=== PATIENT | female | born 2000 | race Hispanic/Latino ===

== ENCOUNTER → 2021-08-14 | Outpatient (CLI) | payer BC, MEDICAID ==
[2021-08-14 14:27] LABS: THYROID STIMULATING HORMONE 1.18 uIU/mL (0.36-3.74)
== END | disposition home or self-care (01) ==
LOC: LAB 11:05
PROVIDERS: ATTEND Obstetrics & Gynecology Obstetrics
DX: O99.282 Endocrine, nutritional and metabolic diseases complicating pregnancy, second trimester (principal); Z3A.24 24 weeks gestation of pregnancy
CPT/HCPCS: 36415; 84439; 84443

== ENCOUNTER 2021-08-27 20:10 | Observation (INO) | payer BC, MEDICAID ==
[~2021-08-27] VITALS: Ht 154.9 cm; Wt 49.9 kg
[2021-08-27 20:12] VITALS: BP 102/48
[2021-08-27] MEDS ORDERED: LACTATED RINGERS 1000ML IV PRN (20:30)
[2021-08-27 20:45] LABS: APPEARANCE,URINE Clear (CLEAR); BILIRUBIN,URINE Negative (NEGATIVE); COLOR,URINE Yellow (YELLOW); GLUCOSE, URINE (UA) Negative (NEGATIVE); KETONES,URINE >=160 mg/dL (NEGATIVE); LEUKOCYTE ESTERASE ,URINE Negative (NEGATIVE); NITRATE,URINE Negative (NEGATIVE); OCCULT BLOOD,URINE Negative (NEGATIVE); PROTEIN,URINE Negative (NEGATIVE)
[2021-08-27 20:52] LABS: AMPHET/METH SCREEN,URINE NEGATIVE (NEGATIVE); BARBITURATE SCREEN, URINE NEGATIVE (NEGATIVE); BENZODIAZEPINES SCREEN,URINE NEGATIVE (NEGATIVE); CANNABINOID SCREEN,URINE NEGATIVE (NEGATIVE); COCAINE SCREEN,URINE NEGATIVE (NEGATIVE); OPIATE SCREEN,URINE NEGATIVE (NEGATIVE); PHENCYCLIDINE SCREEN,URINE NEGATIVE (NEGATIVE)
[2021-08-27] MEDS ORDERED: ONDANSETRON 4MG INJ IVP PRN (21:30)
[2021-08-27] MEDS ORDERED: PROMETHAZINE HCL 25 MG/ML 1ML AMPULE IM PRN (21:30)
[2021-08-27] MEDS ORDERED: LACTATED RINGERS 1000ML 1,000 ML IV SCH (21:30)
== END 2021-08-28 00:56 | disposition home or self-care (01) ==
LOC: EDH 20:10 → LDH 20:11
PROVIDERS: ADMIT Obstetrics & Gynecology; ATTEND Obstetrics & Gynecology
DX: O62.9 Abnormality of forces of labor, unspecified (principal); O21.2 Late vomiting of pregnancy; O26.892 Other specified pregnancy related conditions, second trimester; R10.2 Pelvic and perineal pain; R10.30 Lower abdominal pain, unspecified; Z3A.25 25 weeks gestation of pregnancy; Z79.899 Other long term (current) drug therapy
CPT/HCPCS: 59025; 80305; 81003; 96361 ×3; 96372; 96374; G0378 ×5; G0379; J2405; J2550; J7120; 96360

== ENCOUNTER 2021-11-02 14:25 | Observation (INO) | payer BC, MEDICAID ==
[~2021-11-02] VITALS: Ht 154.9 cm; Wt 52.6 kg
[2021-11-02 14:32] VITALS: BP 142/72
[2021-11-02 15:01] LABS: APPEARANCE,URINE CLEAR (CLEAR); BILIRUBIN,URINE NEGATIVE (NEGATIVE); COLOR,URINE YELLOW (YELLOW); GLUCOSE, URINE (UA) NEGATIVE (NEGATIVE); KETONES,URINE NEGATIVE (NEGATIVE); LEUKOCYTE ESTERASE ,URINE NEGATIVE (NEGATIVE); NITRATE,URINE NEGATIVE (NEGATIVE); OCCULT BLOOD,URINE NEGATIVE (NEGATIVE); PROTEIN,URINE NEGATIVE (NEGATIVE); UROBILINOGEN,URINE 0.2 mg/dL (0.2-1.0)
[2021-11-02 15:07] LABS: AMPHET/METH SCREEN,URINE NEGATIVE (NEGATIVE); BENZODIAZEPINES SCREEN,URINE NEGATIVE (NEGATIVE); CANNABINOID SCREEN,URINE NEGATIVE (NEGATIVE); COCAINE SCREEN,URINE NEGATIVE (NEGATIVE); PHENCYCLIDINE SCREEN,URINE NEGATIVE (NEGATIVE)
[2021-11-02] MEDS ORDERED: LACTATED RINGERS 1000ML IV SCH (15:30)
[2021-11-05 10:14] LABS: OPIATES SCREEN URINE Negative ng/mL (Cutoff=300)
== END 2021-11-02 16:28 | disposition home or self-care (01) ==
LOC: EDH 14:25 → LDH 14:42
PROVIDERS: ADMIT Obstetrics & Gynecology; ATTEND Obstetrics & Gynecology
DX: O26.893 Other specified pregnancy related conditions, third trimester (principal); R10.9 Unspecified abdominal pain; R10.2 Pelvic and perineal pain; Z3A.35 35 weeks gestation of pregnancy; Z79.899 Other long term (current) drug therapy
CPT/HCPCS: 59025; 96360; 80305; 81003; G0378 ×2; G0379; J7120